=== PATIENT | female | born 1960 | race Caucasian/White ===

== ENCOUNTER → 2017-07-30 12:53 | Outpatient (CLI) | payer BC | END | disposition home or self-care (01) | LOC: D.MAMMO 09:30 | DX: R92.8 Other abnormal and inconclusive findings on diagnostic imaging of breast (principal) ==

== ENCOUNTER → 2017-08-26 12:14 | Outpatient (CLI) | payer BC | END | disposition home or self-care (01) | LOC: D.MAMMO 09:30 | DX: N60.01 Solitary cyst of right breast (principal) ==

== ENCOUNTER → 2020-04-17 14:15 | Outpatient (CLI) | payer BC | END | disposition home or self-care (01) | LOC: D.MAMMO 14:15 | PROVIDERS: ATTEND Family Medicine | DX: Z12.31 Encounter for screening mammogram for malignant neoplasm of breast (principal) ==

== ENCOUNTER 2020-12-02 21:28 | Inpatient (IN) | payer BC ==
[~2020-12-02] VITALS: Ht 170.2 cm; Wt 90.7 kg
[2020-12-02] MEDS ORDERED: XANAX0.25 MG PO (21:50)
--- NOTE | 2020-12-02 22:00 | NUR ---
PATIENT HAS HAD NITRO X3, PAIN IS DOWN TO A 6/10. MORPHINE GIVEN WHICH WAS EFFECTIVE RELIEF, SPOUSE AT BEDSIDE.
[2020-12-02 22:09] LABS: BASOPHILS 0.1 % (0-2); EOSINOPHILS 0 % (0-7); HEMATOCRIT 42.5 % (36.0-48.0); HEMOGLOBIN 14.3 g/dL (12-16); IMMATURE GRANULOCYTES 0.3 % (0-5); LYMPHOCYTES 8.8 % (15-50); MCH 28.7 pg (26.0-34.0); MCHC 33.6 g/dL (31.0-37.0); MCV 85.3 fL (80.0-100.0); MONOCYTES 4.7 % (2-11); NEUTROPHIL ABS# 11.71 10x3/uL (1.56-6.13); NEUTROPHILS 86.1 % (40-80); PLATELET COUNT 286 10x3/uL (130-400); RBC 4.98 10x6/uL (4.00-5.40); RDW 13.3 % (11.5-14.5); WBC 13.6 10x3/uL (4.8-10.8)
[2020-12-02 22:20] LABS: APTT 26.9 SECONDS (22.8-39.4); CALC OSMOLALITY 258 mosm/kg (275-300); CALCIUM 9.4 mg/dL (8.5-10.1); CHLORIDE - SERUM 94 mmol/L (98-107); CREATININE - SERUM 0.6 mg/dL (0.6-1.3); GLUCOSE 160 mg/dL (74-106); INR 1.06 (0.85-1.17); PROTIME 12.8 SECONDS (11.6-15.0); SODIUM 128 mmol/L (136-145); UREA NITROGEN 11 mg/dL (7-18); eGFR NON AFRICAN AMERICAN > 90 mL/min (90-120)
[2020-12-02 22:50] LABS: CKMB 0.3 U/L (0.0-3.6); TROPONIN-I 0.021 ng/mL (0.000-0.060)
[2020-12-02 22:51] LABS: ALKALINE PHOSPHATASE 59 U/L (30-120); ALT (SGPT) 2 U/L (10-68); CREATINE KINASE 185 UL (21-215)
[2020-12-02 22:52] LABS: BILIRUBIN - TOTAL 0.74 mg/dL (0.2-1.3); PROTEIN - SERUM 8.2 g/dL (6.4-8.2)
[2020-12-02 22:56] VITALS: BP 163/81
[2020-12-02 23:09] VITALS: BP 154/83
[2020-12-03] VITALS (7 sets, daily range): BP systolic 163–173; BP diastolic 62–79; BMI 31.4
[2020-12-03 00:04] LABS: BILIRUBIN NEGATIVE (NEGATIVE); KETONE LARGE mg/dL (NEGATIVE); NITRITE NEGATIVE (NEGATIVE); UROBILINOGEN NORMAL mg/dL (< 2)
[2020-12-03 00:31] LABS: ALBUMIN 3.8 g/dL (3.4-5.0); MAGNESIUM - SERUM 1.6 mg/dL (1.8-2.4)
[2020-12-03 00:32] LABS: POTASSIUM - SERUM 3.8 mmol/L (3.5-5.1)
[2020-12-03 00:55] LABS: CREATINE KINASE 87 UL (21-215)
[2020-12-03 00:56] LABS: CKMB 0.4 U/L (0.0-3.6)
--- NOTE | 2020-12-03 01:10 | NUR ---
MEDS GIVEN PER ORDER, BS 153,
--- NOTE | 2020-12-03 01:38 | NUR ---
PT TO ROOM 2123 VIA STRETCHER ACCOMPANIED BY HOSPITAL STAFF AND .
[2020-12-03] MEDS ORDERED: CELEXA40 MG PO (03:06)
[2020-12-03 06:58] LABS: BASOPHILS 0 % (0-2); EOSINOPHILS 0 % (0-7); HEMATOCRIT 38.8 % (36.0-48.0); HEMOGLOBIN 12.9 g/dL (12-16); IMMATURE GRANULOCYTES 0.3 % (0-5); LYMPHOCYTES 7.6 % (15-50); MCH 28.4 pg (26.0-34.0); MCHC 33.2 g/dL (31.0-37.0); MCV 85.3 fL (80.0-100.0); MEAN PLATELET VOLUME 9.1 fL (7.4-10.4); MONOCYTES 7.2 % (2-11); NEUTROPHIL ABS# 12.32 10x3/uL (1.56-6.13); NEUTROPHILS 84.9 % (40-80); PLATELET COUNT 251 10x3/uL (130-400); RBC 4.55 10x6/uL (4.00-5.40); RDW 13.3 % (11.5-14.5); WBC 14.5 10x3/uL (4.8-10.8)
[2020-12-03 07:08] LABS: APTT 25.5 SECONDS (22.8-39.4); INR 1.12 (0.85-1.17); PROTIME 13.3 SECONDS (11.6-15.0)
[2020-12-03 07:22] LABS: ALBUMIN 3.7 g/dL (3.4-5.0); ALKALINE PHOSPHATASE 60 U/L (30-120); BILIRUBIN - TOTAL 0.52 mg/dL (0.2-1.3); CALC OSMOLALITY 255 mosm/kg (275-300); CALCIUM 8.5 mg/dL (8.5-10.1); CARBON DIOXIDE 26.2 mmol/L (21.0-32.0); CHLORIDE - SERUM 95 mmol/L (98-107); CHOL - HDL RATIO 4.1 ratio (2.3-4.1); CHOLESTEROL, TOTAL 226 mg/dL (0-200); CREATININE - SERUM 0.7 mg/dL (0.6-1.3); GLUCOSE 141 mg/dL (74-106); HDL CHOLESTEROL 55 mg/dL (32-96); LDL CHOLESTEROL 163 mg/dL (0-100); MAGNESIUM - SERUM 1.7 mg/dL (1.8-2.4); POTASSIUM - SERUM 3.7 mmol/L (3.5-5.1); PROTEIN - SERUM 7.2 g/dL (6.4-8.2); SODIUM 127 mmol/L (136-145); THYROID STIMULATING HORMONE 0.27 uIU/mL (0.36-3.74); TRIGLYCERIDE 43 mg/dL (30-200); UREA NITROGEN 10 mg/dL (7-18); eGFR NON AFRICAN AMERICAN 90 mL/min (90-120)
[2020-12-03 07:23] LABS: CKMB 0.8 U/L (0.0-3.6); CREATINE KINASE 100 UL (21-215); TROPONIN-I 0.033 ng/mL (0.000-0.060)
[2020-12-03 07:24] LABS: ALT (SGPT) 27 U/L (10-68)
[2020-12-03 11:47] LABS: CKMB 0.7 U/L (0.0-3.6); CREATINE KINASE 106 UL (21-215); TROPONIN-I 0.033 ng/mL (0.000-0.060)
--- NOTE | 2020-12-03 14:29 | NUR ---
PT AWAKE AND ORIENTED, LYING IN BED WATHCING T/V. PT REPORTS CONTINUED NAUSEA WITH NO VOMMITING. C/O HEADACHE REQUESTING TYLENOL. WILL ACCOMIDATE. STARTED N/S @75 PER MD ORDER. AT BEDSIDE. PT IS UP WITHOUT ASSISTANCE, NO REPORTED OR NOTABLE DIFFICULTY AMBULATING. CL IN REACH, SRX1
--- NOTE | 2020-12-03 17:21 | NUR ---
I have reviewed this patient and I concur with the Shift Assessment completed by the Licensed Practical Nurse today this shift.
[2020-12-04] VITALS (7 sets, daily range): BP systolic 122–164; BP diastolic 49–85
[2020-12-04 07:06] LABS: ALBUMIN 2.9 g/dL (3.4-5.0); ALKALINE PHOSPHATASE 54 U/L (30-120); ALT (SGPT) 27 U/L (10-68); BASOPHILS 0 % (0-2); BILIRUBIN - TOTAL 0.67 mg/dL (0.2-1.3); CALC OSMOLALITY 252 mosm/kg (275-300); CALCIUM 8.6 mg/dL (8.5-10.1); CARBON DIOXIDE 25.8 mmol/L (21.0-32.0); CHLORIDE - SERUM 93 mmol/L (98-107); CREATININE - SERUM 0.6 mg/dL (0.6-1.3); EOSINOPHILS 0 % (0-7); GLUCOSE 135 mg/dL (74-106); HEMATOCRIT 37.9 % (36.0-48.0); HEMOGLOBIN 12.6 g/dL (12-16); IMMATURE GRANULOCYTES 0.4 % (0-5); LYMPHOCYTE ABS# 1.02 10x3/uL (1.18-3.74); LYMPHOCYTES 5.4 % (15-50); MAGNESIUM - SERUM 1.7 mg/dL (1.8-2.4); MCH 28.1 pg (26.0-34.0); MCHC 33.2 g/dL (31.0-37.0); MCV 84.4 fL (80.0-100.0); MEAN PLATELET VOLUME 9.5 fL (7.4-10.4); MONOCYTES 8.3 % (2-11); NEUTROPHIL ABS# 16.19 10x3/uL (1.56-6.13); NEUTROPHILS 85.9 % (40-80); PLATELET COUNT 261 10x3/uL (130-400); POTASSIUM - SERUM 3.5 mmol/L (3.5-5.1); PROTEIN - SERUM 6.6 g/dL (6.4-8.2); RBC 4.49 10x6/uL (4.00-5.40); RDW 13.4 % (11.5-14.5); SODIUM 126 mmol/L (136-145); eGFR NON AFRICAN AMERICAN > 90 mL/min (90-120)
[2020-12-04 07:07] LABS: UREA NITROGEN 7 mg/dL (7-18); WBC 18.8 10x3/uL (4.8-10.8)
[2020-12-04 08:45] LABS: AMYLASE - SERUM 16 U/L (25-115)
[2020-12-04 08:46] LABS: LIPASE 41 U/L (73-393)
--- NOTE | 2020-12-04 12:37 | NUR ---
PT ALERT AND ORIETNED, UP IN ROOM WITHOUT ASSISTANCE. TOOK ALL MEDICATIONS WITHOUT NOTED OR REPORTED COMPLICATIONS. PT STATES THAT HER NAUSEA IS CONSISTENT. STARTED ZOFRAN DRIP PER MD ORDER. PT SHOWERED, LINNENS CHANGED. AT BEDSIDE. DENIES WANT FOR FOOD. CL IN REACH, SRX2.
--- NOTE | 2020-12-04 18:00 | NUR ---
I have reviewed this patient and I concur with the Shift Assessment completed by the Licensed Practical Nurse today this shift.
--- NOTE | 2020-12-04 18:19 | NUR ---
PT AWAKE AND OIRENTED, REPORTS INCREASED PAIN IN AFECTED AREA. ADMINISTERED PRN PAIN MEDICATION. CL IN REACH, SRX2.
[2020-12-04 21:43] LABS: HCG URINE NEGATIVE (NEGATIVE)
--- NOTE | 2020-12-05 00:55 | NUR ---
RESTING WITH EYES CLOSED, NO S/S DISTRESS NOTED.
--- NOTE | 2020-12-05 03:26 | NUR ---
I have reviewed this patient and I concur with the Shift Assessment completed by the Licensed Practical Nurse today this shift.
[2020-12-05 04:30] VITALS: BP 136/49
[2020-12-05 05:11] LABS: BASOPHILS 0.1 % (0-2); EOSINOPHILS 0.2 % (0-7); HEMATOCRIT 36.5 % (36.0-48.0); IMMATURE GRANULOCYTES 0.3 % (0-5); LYMPHOCYTE ABS# 1.01 10x3/uL (1.18-3.74); LYMPHOCYTES 7.3 % (15-50); MCH 28.4 pg (26.0-34.0); MCHC 32.9 g/dL (31.0-37.0); MEAN PLATELET VOLUME 9.4 fL (7.4-10.4); MONOCYTES 7.8 % (2-11); NEUTROPHIL ABS# 11.66 10x3/uL (1.56-6.13); NEUTROPHILS 84.3 % (40-80); PLATELET COUNT 227 10x3/uL (130-400); RBC 4.22 10x6/uL (4.00-5.40); RDW 13.8 % (11.5-14.5)
[2020-12-05 05:14] LABS: MCV 86.5 fL (80.0-100.0); WBC 13.8 10x3/uL (4.8-10.8)
[2020-12-05 05:30] LABS: HCG SERUM NEGATIVE (NEGATIVE)
[2020-12-05 05:45] LABS: ALBUMIN 2.6 g/dL (3.4-5.0); BILIRUBIN - TOTAL 0.38 mg/dL (0.2-1.3); CALCIUM 8.8 mg/dL (8.5-10.1); CARBON DIOXIDE 28.7 mmol/L (21.0-32.0); POTASSIUM - SERUM 3.7 mmol/L (3.5-5.1); PROTEIN - SERUM 6.5 g/dL (6.4-8.2)
[2020-12-05 05:52] LABS: CREATININE - SERUM 0.9 mg/dL (0.6-1.3); MAGNESIUM - SERUM 2.2 mg/dL (1.8-2.4)
[2020-12-05 08:59] VITALS: BP 135/53
[2020-12-05 12:19] VITALS: BP 134/58
[2020-12-05 13:06] VITALS: Ht 170.2 cm; Wt 90.7 kg
--- NOTE | 2020-12-05 14:51 | NUR ---
PATIENT SITTING UP IN BED AAOX4, MEDICATIONS ADMINISTERED WITH NO COMPLICATIONS, NO S/S OF DISTRESS, PATIENT HAS SURGERY BATH AND CHECK OFF LIST PERFORMED, NO CONTACTS, DENTURES OR GLASSES ON, NO FURTHER NEEDS AT THIS TIME, HILARY BAIN
--- NOTE | 2020-12-05 19:56 | NUR ---
PT IN SURGERY.
[2020-12-05 20:00] VITALS: BP 155/64
--- NOTE | 2020-12-05 20:14 | NUR ---
RECIEVED REPORT FROM O.R.
--- NOTE | 2020-12-05 23:00 | NUR ---
NORCO 1 TAB GIVEN FOR C/O PAIN TO ABD, ICE PACK APPLIED TO ABD. INCISIONS.
[2020-12-06] VITALS: BP 155/77
--- NOTE | 2020-12-06 03:33 | NUR ---
I have reviewed this patient and I concur with the Shift Assessment completed by the Licensed Practical Nurse today this shift.
[2020-12-06 04:00] VITALS: BP 138/70
--- NOTE | 2020-12-06 04:29 | NUR ---
UP WITH ASSIST TO BR, SHAHEED DRAINED, 40 CC BLOODY FLUID NOTED.
[2020-12-06 05:03] LABS: BASOPHILS 0.1 % (0-2); EOSINOPHILS 0.1 % (0-7); HEMATOCRIT 34.4 % (36.0-48.0); IMMATURE GRANULOCYTES 0.1 % (0-5); LYMPHOCYTE ABS# 0.51 10x3/uL (1.18-3.74); LYMPHOCYTES 4.2 % (15-50); MCH 28.4 pg (26.0-34.0); MEAN PLATELET VOLUME 9.2 fL (7.4-10.4); MONOCYTES 6.1 % (2-11); NEUTROPHIL ABS# 10.78 10x3/uL (1.56-6.13); NEUTROPHILS 89.4 % (40-80); PLATELET COUNT 237 10x3/uL (130-400); RBC 3.87 10x6/uL (4.00-5.40); RDW 14.2 % (11.5-14.5); WBC 12.1 10x3/uL (4.8-10.8)
[2020-12-06 05:15] LABS: MCV 88.9 fL (80.0-100.0)
[2020-12-06 05:41] LABS: ALBUMIN 2.3 g/dL (3.4-5.0); ALKALINE PHOSPHATASE 88 U/L (30-120); CALCIUM 8.2 mg/dL (8.5-10.1); CARBON DIOXIDE 26.3 mmol/L (21.0-32.0); CHLORIDE - SERUM 102 mmol/L (98-107); CREATININE - SERUM 0.8 mg/dL (0.6-1.3); GLUCOSE 128 mg/dL (74-106); POTASSIUM - SERUM 3.7 mmol/L (3.5-5.1); PROTEIN - SERUM 6.4 g/dL (6.4-8.2); SODIUM 135 mmol/L (136-145); eGFR NON AFRICAN AMERICAN 77 mL/min (90-120)
[2020-12-06 05:45] LABS: ALT (SGPT) 52 U/L (10-68); CALC OSMOLALITY 271 mosm/kg (275-300); UREA NITROGEN 12 mg/dL (7-18)
[2020-12-06 08:00] VITALS: BP 150/69
[2020-12-06] MEDS ORDERED: HYDROCODONE-AC1 EAC2 PO (10:14)
--- NOTE | 2020-12-06 10:45 | NUR ---
D/C SHAHEED DRAIN PER MELLISA ROGEL APN ORDER. EMPTIED 25ML, SEROSANGUINOUS DRAINAGE. STERI STRIPS APPLIED. INSTRUCTED ON HOME CARE. TOLERATED WELL.
[2020-12-06 11:00] VITALS: BP 138/63
[2020-12-06] MEDS ORDERED: MUCINEX600 MG PO (11:34)
[2020-12-06] MEDS ORDERED: FLORAJEN3 CAPS460 MG PO (11:34)
[2020-12-06] MEDS ORDERED: PROTONIX20 MG PO (11:35)
[2020-12-06] MEDS ORDERED: LEVOFLOXACIN500 MG PO (11:35)
--- NOTE | 2020-12-06 15:30 | NUR ---
D/C RIGHT FOREARM IV, TIP INTACT. DISCHARGE INSTRUCTIONS GIVEN VERBALLY AND HANDOUTS PROVIDED. TAKEN DOWN TO AT ED ENTRANCE VIA WHEELCHAIR. REMAINS FREE FROM INURY.
== END 2020-12-06 16:40 | disposition home or self-care (01) | DRG 418 ==
LOC: D.ER 21:28 → OBSVTIME 23:10 → D.M2 23:10
PROVIDERS: Anesthesiology; Emergency Medicine; Family Medicine; Surgery; ADMIT Family Medicine; ATTEND Family Medicine
PROC: 0FB04ZX Excision of Liver, Percutaneous Endoscopic Approach, Diagnostic (ICD-10-PCS; 2020-12-05)
PROC: BF101ZZ Fluoroscopy of Bile Ducts using Low Osmolar Contrast (ICD-10-PCS; 2020-12-05)
PROC: 0FT44ZZ Resection of Gallbladder, Percutaneous Endoscopic Approach (ICD-10-PCS; principal; 2020-12-05 13:30)
DX: K81.0 Acute cholecystitis (principal); E87.1 Hypo-osmolality and hyponatremia; I10 Essential (primary) hypertension; F41.9 Anxiety disorder, unspecified; R73.9 Hyperglycemia, unspecified; E83.42 Hypomagnesemia; D64.9 Anemia, unspecified